=== PATIENT | female | born 1955 | race Caucasian/White ===

== ENCOUNTER 2017-11-13 13:17 | Emergency (ER) | payer OTHER ==
[~2017-11-13] VITALS: Ht 160 cm; Wt 104.3 kg
[~2017-11-13 13:17] MED LIST: LEVAQUIN500 MG PO
== END 2017-11-13 14:23 | disposition home or self-care (01) ==
LOC: ER 13:17
DX: S81.822A Laceration with foreign body, left lower leg, initial encounter (principal); W45.8XXA Other foreign body or object entering through skin, initial encounter; Y93.89 Activity, other specified; Y92.89 Other specified places as the place of occurrence of the external cause; Y99.8 Other external cause status

== ENCOUNTER → 2018-08-03 | Outpatient (CLI) | payer OTHER | END | disposition home or self-care (01) | LOC: NUCLEAR 11:00 | DX: I70.213 Atherosclerosis of native arteries of extremities with intermittent claudication, bilateral legs (principal) ==

== ENCOUNTER 2018-08-22 12:14 | Emergency (ER) | payer OTHER ==
[~2018-08-22] VITALS: Ht 160 cm; Wt 113.4 kg
[2018-08-22] MEDS ORDERED: CYMBALTA60 MG (12:36)
[2018-08-22] MEDS ORDERED: VISTARIL25 MG (12:36)
[2018-08-22] MEDS ORDERED: CYMBALTA30 MG (12:36)
[2018-08-22] MEDS ORDERED: ZANAFLEX4 M1 (12:36)
[2018-08-22] MEDS ORDERED: ZANTAC300 MG (12:37)
[2018-08-22] MEDS ORDERED: PROTONIX40 MG (12:37)
[2018-08-22] MEDS ORDERED: SINGULAIR10 MG (12:37)
[2018-08-22] MEDS ORDERED: LYRICA300 MG (12:37)
[2018-08-22] MEDS ORDERED: LANTUS SOL100 UNIT/1 (12:38)
[2018-08-22] MEDS ORDERED: MILLIPRED5 MG (12:38)
[2018-08-22] MEDS ORDERED: DETROL LA4 MG (12:38)
[2018-08-22] MEDS ORDERED: HYDROMORPHONE (12:39)
[2018-08-22] MEDS ORDERED: SYNTHROID125 MCG (12:39)
[2018-08-22] MEDS ORDERED: ABILIFY5 MG (12:41)
== END 2018-08-22 14:57 | disposition home or self-care (01) ==
LOC: ER 12:14
DX: G51.0 Bell's palsy (principal)

== ENCOUNTER 2018-09-02 15:03 | Outpatient (CLI) | payer OTHER ==
[~2018-09-02 15:03] MED LIST changes: +ABILIFY5 MG; +CYMBALTA30 MG; +CYMBALTA60 MG; +DETROL LA4 MG; +HYDROMORPHONE; +LANTUS SOL100 UNIT/1; +LYRICA300 MG; +MILLIPRED5 MG; +PROTONIX40 MG; +SINGULAIR10 MG; +SYNTHROID125 MCG; +VISTARIL25 MG; +ZANAFLEX4 M1; +ZANTAC300 MG
== END 2018-09-02 15:05 | disposition home or self-care (01) ==
LOC: TOM 15:03
DX: G51.0 Bell's palsy (principal)

== ENCOUNTER 2018-11-23 08:46 | Outpatient (CLI) | payer OTHER | END 2018-11-23 08:50 | disposition home or self-care (01) | LOC: NUCLEAR 08:46 | DX: M15.0 Primary generalized (osteo)arthritis (principal) | CPT/HCPCS: 78306; A9503 ==

== ENCOUNTER 2019-03-08 13:49 | Inpatient (IN) | payer OTHER ==
[~2019-03-08] VITALS: Ht 160 cm; Wt 113.4 kg
[2019-03-08] MEDS ORDERED: OXYCONTIN40 M1 PO (14:26)
[2019-03-08] MEDS ORDERED: VERELAN PM100 MG PO (14:27)
[2019-03-08] MEDS ORDERED: HUMULIN R500 UNIT/2 SUBCUTANEO (14:28)
--- NOTE | 2019-03-08 14:29 | NUR ---
SE RECIBE PTE FEMENINA, ALERTA Y ORIENTADA X3, EN COMPANIA DE FAMILIAR REFIEREN PTE PRESENTA SOB, SE OBSERVA PTE CON TERAPIA DE OXIGENO CN 2LT/MIN Y PALIDA, PTE REFIERE PRESENTAR SINTOMAS HACE BERNY SHEARER. SE REALIZA EKG, SE MUESTRA RESULTADO Y S/V A DR. GOLDBERG EL CUAL REFIERE COLOCAR PTE EN AREA DE SECCION K CAMA 6.
--- NOTE | 2019-03-08 15:14 | NUR ---
MRS SMITH ORIENTA A PT SOBRE ORDENES MEDICAS LA CUAL REFIERE ENTENDER. LE COLECTA MUESTRAS Y CANALIZA BAJO MEDIDAS ASEPTICAS PT TOLERA. SE ADMINISTRAN MEDICAMENTOS STERLING PRESCRITOS PT TOL[place]A. SE NOTIFICA TERAPIA RESPIRATORIA A MRS ANDRAE DE TERAPIA RESPIRATORIA.
[2019-03-11] MEDS ORDERED: DILAUDID4 MG (08:33)
[2019-04-07] MEDS ORDERED: CLOPIDOGREL BIS75 MG PO (10:35)
[2019-04-07] MEDS ORDERED: MUCINEX600 MG PO (10:37)
[2019-04-07] MEDS ORDERED: LEVOTHYROXINE125 MCG PO (10:38)
[2019-04-07] MEDS ORDERED: FLONASE16 GM NASAL (10:38)
[2019-04-07] MEDS ORDERED: PREDNISONE20 MG PO (10:39)
[2019-04-07] MEDS ORDERED: ABILIFY5 MG PO (10:41)
== END 2019-04-07 18:27 | disposition home or self-care (01) | DRG 291 ==
LOC: ER 13:49 → ICU 19:24 → ICU-2 19:24 → ICU 22:46 → MEDJ 03-10 22:47 → ICU 03-16 18:51 → SURH 03-27 14:50 → ICU 03-27 14:52 → SURH 03-27 17:55
PROVIDERS: ADMIT Internal Medicine
PROC: B246ZZZ Ultrasonography of Right and Left Heart (ICD-10-PCS; principal; 2019-03-08)
PROC: 4A033R1 Measurement of Arterial Saturation, Peripheral, Percutaneous Approach (ICD-10-PCS; 2019-03-08)
PROC: 3E0F7GC Introduction of Other Therapeutic Substance into Respiratory Tract, Via Natural or Artificial Opening (ICD-10-PCS; 2019-03-08)
PROC: 0T9B70Z Drainage of Bladder with Drainage Device, Via Natural or Artificial Opening (ICD-10-PCS; 2019-03-09)
PROC: 02HV33Z Insertion of Infusion Device into Superior Vena Cava, Percutaneous Approach (ICD-10-PCS; 2019-03-10)
PROC: 4A12X4Z Monitoring of Cardiac Electrical Activity, External Approach (ICD-10-PCS; 2019-03-10)
PROC: CB121ZZ Planar Nuclear Medicine Imaging of Lungs and Bronchi using Technetium 99m (Tc-99m) (ICD-10-PCS; 2019-03-11)
PROC: B54DZZZ Ultrasonography of Bilateral Lower Extremity Veins (ICD-10-PCS; 2019-03-12)
PROC: BT4JZZZ Ultrasonography of Kidneys and Bladder (ICD-10-PCS; 2019-03-16)
PROC: 8E0ZXY6 Isolation (ICD-10-PCS; 2019-03-25)
DX: I11.0 Hypertensive heart disease with heart failure (principal); I26.09 Other pulmonary embolism with acute cor pulmonale; B37.1 Pulmonary candidiasis; J44.1 Chronic obstructive pulmonary disease with (acute) exacerbation; J45.41 Moderate persistent asthma with (acute) exacerbation; E27.49 Other adrenocortical insufficiency; L03.115 Cellulitis of right lower limb; J98.11 Atelectasis; B37.0 Candidal stomatitis; N17.8 Other acute kidney failure; G72.81 Critical illness myopathy; D50.0 Iron deficiency anemia secondary to blood loss (chronic); G51.0 Bell's palsy; I50.41 Acute combined systolic (congestive) and diastolic (congestive) heart failure; E03.8 Other specified hypothyroidism; E66.01 Morbid (severe) obesity due to excess calories; G47.33 Obstructive sleep apnea (adult) (pediatric); E11.40 Type 2 diabetes mellitus with diabetic neuropathy, unspecified; E11.65 Type 2 diabetes mellitus with hyperglycemia; N39.8 Other specified disorders of urinary system; Z79.4 Long term (current) use of insulin; Z79.01 Long term (current) use of anticoagulants

== ENCOUNTER 2019-07-01 13:17 | Inpatient (IN) | payer OTHER ==
[~2019-07-01] VITALS: Ht 160 cm; Wt 117.9 kg
[~2019-07-01 13:17] MED LIST changes: +ABILIFY5 MG PO; +CLOPIDOGREL BIS75 MG PO; +DILAUDID4 MG; +FLONASE16 GM NASAL; +HUMULIN R500 UNIT/2 SUBCUTANEO; +LEVOTHYROXINE125 MCG PO; +MUCINEX600 MG PO; +OXYCONTIN40 M1 PO; +PREDNISONE20 MG PO; +VERELAN PM100 MG PO
[2019-07-04] MEDS ORDERED: TAMSULOSIN HCL0.4 MG (13:06)
[2019-07-04] MEDS ORDERED: IPRATROPIU0.2 MG/1 M (13:06)
[2019-07-04] MEDS ORDERED: LEVALBUTER1.25 MG/3 (13:06)
[2019-07-08] MEDS ORDERED: NEBUSAL4 M1 IH (11:29)
[2019-07-08] MEDS ORDERED: TESSALON PERLE100 M1 PO (11:30)
[2019-07-08] MEDS ORDERED: TUSSIN DM LIQU118 ML PO (11:32)
== END 2019-07-08 14:05 | disposition home or self-care (01) | DRG 178 ==
LOC: ER 13:17 → SURH 21:34
PROVIDERS: ADMIT Internal Medicine
PROC: BB24ZZZ Computerized Tomography (CT Scan) of Bilateral Lungs (ICD-10-PCS; principal; 2019-07-01)
PROC: 3E0F7GC Introduction of Other Therapeutic Substance into Respiratory Tract, Via Natural or Artificial Opening (ICD-10-PCS; 2019-07-01)
PROC: 4A033R1 Measurement of Arterial Saturation, Peripheral, Percutaneous Approach (ICD-10-PCS; 2019-07-01)
PROC: 8E0ZXY6 Isolation (ICD-10-PCS; 2019-07-01)
PROC: 05H533Z Insertion of Infusion Device into Right Subclavian Vein, Percutaneous Approach (ICD-10-PCS; 2019-07-03)
DX: J15.6 Pneumonia due to other Gram-negative bacteria (principal); J44.1 Chronic obstructive pulmonary disease with (acute) exacerbation; J45.41 Moderate persistent asthma with (acute) exacerbation; J98.11 Atelectasis; N39.0 Urinary tract infection, site not specified; E27.49 Other adrenocortical insufficiency; B96.20 Unspecified Escherichia coli [E. coli] as the cause of diseases classified elsewhere; L89.310 Pressure ulcer of right buttock, unstageable; E03.8 Other specified hypothyroidism; E11.65 Type 2 diabetes mellitus with hyperglycemia; E66.01 Morbid (severe) obesity due to excess calories; G47.33 Obstructive sleep apnea (adult) (pediatric); Z79.4 Long term (current) use of insulin; Z74.01 Bed confinement status

== ENCOUNTER → 2019-10-27 | Outpatient (CLI) | payer OTHER ==
[~2019-10-27] MED LIST changes: +IPRATROPIU0.2 MG/1 M; +LEVALBUTER1.25 MG/3; +NEBUSAL4 M1 IH; +TAMSULOSIN HCL0.4 MG; +TESSALON PERLE100 M1 PO; +TUSSIN DM LIQU118 ML PO
== END | disposition home or self-care (01) ==
LOC: RAD 10:41
PROVIDERS: ATTEND Anesthesiology
DX: I10 Essential (primary) hypertension (principal); Z01.811 Encounter for preprocedural respiratory examination; Z01.810 Encounter for preprocedural cardiovascular examination

== ENCOUNTER 2020-05-13 16:45 | Inpatient (IN) | payer OTHER ==
[~2020-05-13] VITALS: Ht 160 cm; Wt 113.4 kg
[2020-05-14] MEDS ORDERED: [UNRECOGNIZED DRUG - OTHER] (02:40)
[2020-05-14] MEDS ORDERED: ZANAFLEX4 MG (02:41)
[2020-05-14] MEDS ORDERED: CYMBALTA30 MG (02:41)
[2020-05-14] MEDS ORDERED: CYMBALTA60 MG (02:42)
[2020-05-14] MEDS ORDERED: SYNTHROID125 MCG (02:43)
[2020-05-14] MEDS ORDERED: ABILIFY5 MG (02:43)
[2020-05-14] MEDS ORDERED: PREDNISONE 5MG (02:43)
[2020-05-14] MEDS ORDERED: PLAVIX75 MG (02:43)
[2020-05-14] MEDS ORDERED: FIORICET (02:45)
[2020-05-14] MEDS ORDERED: LYRICA300 MG (02:46)
[2020-05-14] MEDS ORDERED: SINGULAIR10 MG (02:46)
[2020-05-14] MEDS ORDERED: PEPCID AC20 MG (02:46)
[2020-05-14] MEDS ORDERED: PROTONIX20 MG (02:46)
[2020-05-14] MEDS ORDERED: ZOCOR20 MG (02:47)
[2020-05-14] MEDS ORDERED: HUMULIN R500 UNIT/2 (02:47)
[2020-05-14] MEDS ORDERED: CLONAZEPAM0.5 MG (02:47)
[2020-05-17] MEDS ORDERED: BUTALB-ACETAMI1 EACH (10:16)
[2020-05-17] MEDS ORDERED: OXYCODONE HCL5 MG (10:19)
[2020-05-23] MEDS ORDERED: PEPCID AC20 MG PO (12:16)
[2020-05-23] MEDS ORDERED: PREVACID30 MG PO (12:17)
[2020-05-23] MEDS ORDERED: CARAFATE1 GM/10 ML PO (12:18)
[2020-05-23] MEDS ORDERED: PREDNISONE10 MG PO (12:19)
[2020-05-23] MEDS ORDERED: LEVOFLOXACIN750 MG PO (12:22)
[2020-05-23] MEDS ORDERED: BUTALB-ACETAMI1 EACH PO (12:26)
[2020-05-23] MEDS ORDERED: XOPENEX0.63 MG/3 IH (15:48)
[2020-05-23] MEDS ORDERED: IPRATROPIU0.2 MG/1 M IH (15:48)
== END 2020-05-23 00:05 | disposition home health service (06) | DRG 190 ==
LOC: ER 16:45 → SEC-K 05-14 12:52 → SURH 05-14 19:43
PROVIDERS: ADMIT Internal Medicine; ATTEND Internal Medicine
PROC: 4A033R1 Measurement of Arterial Saturation, Peripheral, Percutaneous Approach (ICD-10-PCS; 2020-05-13)
PROC: 3E0F7SF Introduction of Other Gas into Respiratory Tract, Via Natural or Artificial Opening (ICD-10-PCS; 2020-05-13)
PROC: BW24ZZZ Computerized Tomography (CT Scan) of Chest and Abdomen (ICD-10-PCS; principal; 2020-05-14)
DX: J44.1 Chronic obstructive pulmonary disease with (acute) exacerbation (principal); J18.9 Pneumonia, unspecified organism; J45.901 Unspecified asthma with (acute) exacerbation; E27.49 Other adrenocortical insufficiency; N39.0 Urinary tract infection, site not specified; R04.2 Hemoptysis; B37.0 Candidal stomatitis; I50.89 Other heart failure; I10 Essential (primary) hypertension; E03.8 Other specified hypothyroidism; E66.01 Morbid (severe) obesity due to excess calories; R33.9 Retention of urine, unspecified; E11.65 Type 2 diabetes mellitus with hyperglycemia; Z79.4 Long term (current) use of insulin; D50.8 Other iron deficiency anemias; G47.30 Sleep apnea, unspecified; Z20.822 Contact with and (suspected) exposure to COVID-19; Z74.01 Bed confinement status; Z79.52 Long term (current) use of systemic steroids; J44.0 Chronic obstructive pulmonary disease with (acute) lower respiratory infection

== ENCOUNTER 2021-03-25 08:34 | Outpatient (CLI) | payer OTHER ==
[~2021-03-25 08:34] MED LIST changes: +BUTALB-ACETAMI1 EACH; +BUTALB-ACETAMI1 EACH PO; +CARAFATE1 GM/10 ML PO; +CLONAZEPAM0.5 MG; +FIORICET; +HUMULIN R500 UNIT/2; +IPRATROPIU0.2 MG/1 M IH; +LEVOFLOXACIN750 MG PO; +OXYCODONE HCL5 MG; +PEPCID AC20 MG; +PEPCID AC20 MG PO; +PLAVIX75 MG; +PREDNISONE 5MG; +PREDNISONE10 MG PO; +PREVACID30 MG PO; +PROTONIX20 MG; +XOPENEX0.63 MG/3 IH; +ZANAFLEX4 MG; +ZOCOR20 MG; +[UNRECOGNIZED DRUG - OTHER]
== END 2021-03-25 14:56 | disposition home or self-care (01) ==
LOC: SONOGRAMA 08:34
PROVIDERS: ATTEND General Practice
DX: K76.0 Fatty (change of) liver, not elsewhere classified (principal); R10.84 Generalized abdominal pain; R19.06 Epigastric swelling, mass or lump

== ENCOUNTER 2022-10-27 21:00 | Inpatient (IN) | payer OTHER ==
[~2022-10-27] VITALS: Ht 149.9 cm; Wt 158.8 kg
== END 2022-11-03 17:32 | disposition home or self-care (01) | DRG 178 ==
LOC: ER 21:00 → MEDJ 23:46
PROVIDERS: ADMIT Internal Medicine; ATTEND Internal Medicine
PROC: XW033E5 Introduction of Remdesivir Anti-infective into Peripheral Vein, Percutaneous Approach, New Technology Group 5 (ICD-10-PCS; principal; 2022-10-28)
PROC: BW24ZZZ Computerized Tomography (CT Scan) of Chest and Abdomen (ICD-10-PCS; 2022-10-28)
PROC: 02HV33Z Insertion of Infusion Device into Superior Vena Cava, Percutaneous Approach (ICD-10-PCS; 2022-10-28)
PROC: 4A12X4Z Monitoring of Cardiac Electrical Activity, External Approach (ICD-10-PCS; 2022-10-28)
DX: U07.1 COVID-19 (principal); E27.49 Other adrenocortical insufficiency; E66.2 Morbid (severe) obesity with alveolar hypoventilation; N39.0 Urinary tract infection, site not specified; J44.9 Chronic obstructive pulmonary disease, unspecified; Z74.01 Bed confinement status; Z99.81 Dependence on supplemental oxygen; E11.65 Type 2 diabetes mellitus with hyperglycemia; Z79.4 Long term (current) use of insulin; E03.9 Hypothyroidism, unspecified; B96.20 Unspecified Escherichia coli [E. coli] as the cause of diseases classified elsewhere; M79.7 Fibromyalgia